=== PATIENT | male | born 1990 | race Asian ===

== ENCOUNTER 2017-03-29 18:41 | Emergency (ER) | payer MEDICAID ==
[~2017-03-29] VITALS: Ht 175.3 cm; Wt 62.6 kg
[2017-03-29 18:58] LABS: BASOPHILS # (AUTO) 0.1 /CMM (0.0-0.2); BASOPHILS % (AUTO) 0.5 % (0.0-2.0); EOSINOPHILS # (AUTO) 0.2 /CMM (0.0-0.7); EOSINOPHILS % (AUTO) 1.3 % (0.0-6.0); HEMATOCRIT 33 % (39-51); HEMOGLOBIN 11.1 g/dL (13.5-17.5); LYMPHOCYTES # (AUTO) 1.9 /CMM (0.8-4.8); LYMPHOCYTES % (AUTO) 13.9 % (20.0-44.0); MEAN CORPUSCULAR HEMOGLOBIN 28 PG (26.0-33.0); MEAN CORPUSCULAR HGB CONC 34 g/dl (31.0-36.0); MEAN CORPUSCULAR VOLUME 85 fL (80-96); MONOCYTES # (AUTO) 0.7 /CMM (0.1-1.30); MONOCYTES % (AUTO) 4.8 % (2.0-12.0); NEUTROPHILS # (AUTO) 10.9 /CMM (1.8-8.9); NEUTROPHILS % (AUTO) 79.5 % (43.0-81.0); PLATELET COUNT (AUTO) 357 /CMM (150-450); RDW COEFFICIENT OF VARIATION 13.3 (11.5-15.0); RED BLOOD CELL COUNT(AUTO) 3.91 MIL/uL (4.5-6.0); WHITE BLOOD COUNT (AUTO) 13.8 K/uL (4.3-11.0)
--- NOTE | 2017-03-29 19:00 | NUR ---
PT BIB RA WITH A C/O LT FOOT LAC DEHISCENCE. PT STATED THAT HE HAD THIS LAC 2 MONTHS AGO AND IT DEHISCED S/P STICHES REMOVAL. PT STATED THAT THIS HAS HAPPENED A FEW TIMES. WOUND IS CURRENTLY NOT BLEEDING. PT IS AA&O X4. PT'S FRIEND IS AT THE BEDSIDE.
--- NOTE | 2017-03-29 19:05 | NUR ---
WOUND CARE IN PROGRESS AT THE BEDSIDE.
[2017-03-29 19:54] LABS: INR 1.06 (0.87-1.13)
--- NOTE | 2017-03-29 20:23 | NUR ---
Stone DEGRASSE, ACNP AT THE BEDSIDE SUTURING.
[2017-03-29] MEDS ORDERED: GELATIN SPONGE,ABSORBABLE 1 SPONGE SPONGE TP ONE ×2 (20:41→21:00)
--- NOTE | 2017-03-29 22:43 | NUR ---
PT REC'D ORTHO GLASS SHORT POSTERIOR SPLINT TO THE LLE. Crutches dispensed. Pt instructed on proper use of crutches. Patient able to demonstrate correct use of crutches.
[2017-03-29 23:04] VITALS: BP 108/81
--- NOTE | 2017-03-29 23:05 | NUR ---
Patient discharged to home in stable condition. Written and verbal after care instructions given. Patient verbalizes understanding of instruction. VSS, NAD noted on DC. Denies complaint on DC.
== END 2017-03-29 23:07 | disposition home or self-care (01) ==
LOC: ER 18:43
DX: S91.011A Laceration without foreign body, right ankle, initial encounter (principal); R79.1 Abnormal coagulation profile; W22.8XXA Striking against or struck by other objects, initial encounter; Y93.89 Activity, other specified; Y92.89 Other specified places as the place of occurrence of the external cause; Y99.9 Unspecified external cause status
CPT/HCPCS: 29515; 36415; 85025; 85610; 99284; A4606; A6403 ×2; Z7610